=== PATIENT | male | born 1995 | race African-American/Black ===

== ENCOUNTER 2022-11-17 00:15 | Inpatient (IN) | payer MEDICAID ==
[~2022-11-17] VITALS: Ht 193 cm; Wt 117.9 kg
[2022-11-17 00:30] VITALS: BP 107/63
--- NOTE | 2022-11-17 00:34 | NUR ---
PT TAKEN TO BED 9
--- NOTE | 2022-11-17 00:41 | NUR ---
Patient resting in bed, A/Ox4, chest rise and fall symmetrical, no s/s of distress.
[2022-11-17] MEDS ORDERED: MORPHINE SULFATE 4 MG/ML SYR IVP ONE ×2 (00:45→03:25)
--- NOTE | 2022-11-17 01:01 | NUR ---
LAB AT BEDSIDE
[2022-11-17 01:07] LABS: BASOPHILS # (AUTO) 0.1 K/uL (0.00-0.22); BASOPHILS % (AUTO) 0.8 % (0.0-2.0); EOSINOPHILS # (AUTO) 0.3 K/uL (0-0.4); EOSINOPHILS % (AUTO) 3.4 % (0.0-4.0); HEMATOCRIT 42.7 % (36-52); HEMOGLOBIN 14.8 g/dL (12.0-18.0); LYMPHOCYTES # (AUTO) 4.1 K/uL (2.0-11.5); LYMPHOCYTES % (AUTO) 55.5 % (20.5-51.1); MEAN CORPUSCULAR HEMOGLOBIN 29 pg (27-31); MEAN CORPUSCULAR HGB CONC 35 g/dL (33-37); MONOCYTES # (AUTO) 0.3 K/uL (0.8-1.0); MONOCYTES % (AUTO) 4.6 % (1.7-9.3); NEUTROPHILS # (AUTO) 2.6 K/uL (1.8-7.7); PLATELET COUNT (AUTO) 239 K/uL (140-450); RED BLOOD CELL COUNT(AUTO) 5.15 MIL/uL (4.20-6.10); RED CELL DISTRIBUTION WIDTH 14.4 % (11.6-13.7); WHITE BLOOD COUNT (AUTO) 7.4 K/uL (4.8-10.8)
--- NOTE | 2022-11-17 01:09 | NUR ---
PT STATES HE IS UNABLE TO URINATE AT THIS TIME
--- NOTE | 2022-11-17 01:10 | NUR ---
Dr. Chamberlain examining patient.
--- NOTE | 2022-11-17 01:10 | NUR ---
GINA SIN AT BEDSIDE TO ASSESS, JOSE EMT ACCOMPAINED
--- NOTE | 2022-11-17 01:15 | NUR ---
Patient resting in bed, A/Ox4, chest rise and fall symmetrical, no s/s of distress.
--- NOTE | 2022-11-17 01:15 | NUR ---
BP 105/57 HR 66, ERMD SIN MADE AWARE, WOULD LIKE FOR MORPHINE 4MG TO BE CARRIED OUT WELL A LITER OF FLUIDS. ORDERS CARRIED OUT
[2022-11-17 01:24] LABS: PROTHROMBIN TIME 9.9 secs (10.8-13.4)
[2022-11-17 01:25] LABS: ALBUMIN 4.3 g/dL (3.4-5.0); ANION GAP 10.2 (8-16); CARBON DIOXIDE 31.3 mmol/L (21-32); CREATININE 0.9 mg/dL (0.6-1.3); NEUTROPHILS % (AUTO) 35.7 % (42.2-75.2); POTASSIUM 4.5 mmol/L (3.5-5.1); TOTAL BILIRUBIN 1.3 mg/dL (0.0-1.0)
[2022-11-17] MEDS ORDERED: NACL 0.9% 1,000 ML IV ONE (01:25)
[2022-11-17] MEDS ORDERED: LIDOCAINE 1% 500 MG/ 50 ML VIAL INJ ONE ×2 (01:35→05:45)
[2022-11-17] MEDS ORDERED: LIDOCAINE MPF 1% 5 ML ONE ×3 (01:42→03:51)
--- NOTE | 2022-11-17 02:10 | NUR ---
Patient resting in bed, A/Ox4, chest rise and fall symmetrical, no s/s of distress.
--- NOTE | 2022-11-17 02:55 | NUR ---
DR. RUGGIERO AT BEDSIDE FOR PROCEDURE
[2022-11-17] MEDS ORDERED: MORPHINE SULFATE 4 MG/ML SYR ONE (03:25)
--- NOTE | 2022-11-17 03:31 | NUR ---
Dr. Chamberlain performing proceedure at bedside. Patient tolerating proceedure well.
--- NOTE | 2022-11-17 03:40 | NUR ---
Patient resting in bed, A/Ox4, chest rise and fall symmetrical, no s/s of distress.
[2022-11-17] MEDS ORDERED: LIDOCAINE MPF 1% 10 MG/ML VIAL INJ ONE ×2 (04:05→07:30)
[2022-11-17] MEDS ORDERED: MORPHINE SULFATE 2 MG/ML SYR IVP PRN ×2 (04:30→07:15)
--- NOTE | 2022-11-17 04:42 | NUR ---
Patient resting in bed, A/Ox4, chest rise and fall symmetrical, no s/s of distress.
--- NOTE | 2022-11-17 06:05 | NUR ---
Patient resting in bed, A/Ox4, chest rise and fall symmetrical, no c/o pain or s/s of distress.
[2022-11-17] MEDS ORDERED: MAG SULF 2000 MG/WATER PREMIX 50 ML IV PRN (07:15)
[2022-11-17] MEDS ORDERED: ONDANSETRON 4 MG/2 ML VIAL IVP PRN (07:15)
[2022-11-17] MEDS ORDERED: LORazepam 2 MG/ML VIAL IVP PRN (07:15)
[2022-11-17] MEDS ORDERED: ZOLPIDEM 10 MG TAB PO PRN (07:15)
[2022-11-17] MEDS ORDERED: DOCUSATE SODIUM 100 MG GELCAP PO PRN (07:15)
[2022-11-17] MEDS ORDERED: POTASSIUM CHLORIDE 10 MEQ TABER PO PRN (07:15)
[2022-11-17] MEDS ORDERED: ACETAMINOPHEN 325 MG TAB PO PRN (07:15)
--- NOTE | 2022-11-17 07:20 | NUR ---
Dorian tidwell in ED - 11/17/22 at 0731 by [email or web address] Change of shift report given to AM shift nurse Marychuy REYES. AM shift nurse Marychuy REYES verbalized understanding of report, no further questions.
[2022-11-17] MEDS ORDERED: PHENYLEPHRINE 10 MG/ML VIAL IV ONE (07:30)
--- NOTE | 2022-11-17 07:31 | NUR ---
Change of shift report given to AM shift nurse Marychuy RN. AM shift nurse Marychuy RN verbalized understanding of report, no further questions.
--- NOTE | 2022-11-17 07:31 | NUR ---
received pt in [facility] aox4. denies pain or discomfort. pending possible dc home
[2022-11-17 08:54] VITALS: BP 115/63
--- NOTE | 2022-11-17 08:59 | NUR ---
Patient discharged with v/s stable. Written and verbal after care instructions given and explained. Patient verbalized understanding. Ambulatory with steady gait. All questions addressed prior to discharge. Advised to follow up with PMD.
== END 2022-11-17 08:59 | disposition home or self-care (01) | DRG 730 ==
LOC: MED 00:15 → MMU 04:28
PROVIDERS: ADMIT Family Medicine; ATTEND Family Medicine
DX: N48.39 Other priapism (principal); Z20.822 Contact with and (suspected) exposure to COVID-19
CPT/HCPCS: 36415; 80053; 85025; 85610; 85730; 96361; 96374; 96376; 99285; J2001; J2270